=== PATIENT | female | born 1970 ===

== ENCOUNTER 2020-08-04 09:07 | Emergency (ER) | payer OTHER, BC ==
[~2020-08-04] VITALS: Ht 154.9 cm; Wt 61.7 kg
[~2020-08-04 09:07] MED LIST: ALBU90OI61 INH; Crutch1 EACH MISC; Percocet 5-3251 EACH PO
[2020-08-04] MEDS ORDERED: ZOLP10 PO (09:46)
== END 2020-08-04 12:02 | disposition home or self-care (01) ==
LOC: ER 09:07
DX: G43.909 Migraine, unspecified, not intractable, without status migrainosus (principal); Z88.5 Allergy status to narcotic agent; Z79.899 Other long term (current) drug therapy
CPT/HCPCS: 70450; 96372; 99284-25; J0780; J1200; J1885

== ENCOUNTER → 2023-12-12 | Outpatient (CLI) | payer OTHER, BC ==
[~2023-12-12] MED LIST changes: +ZOLP10 PO
== END | disposition home or self-care (01) ==
LOC: LAB SHORT 13:05
DX: N39.0 Urinary tract infection, site not specified (principal)
CPT/HCPCS: 87077; 87086; 87186